=== PATIENT | male | born 1965 | race Caucasian/White ===

== ENCOUNTER 2020-10-05 11:39 | Outpatient (CLI) | payer OTHER, SELFPAY ==
--- NOTE | ~2020-10-05 | XR_ITS ---
EXAMINATION: XR chest 2V DATE: 10/05/2020 12:00 INDICATION: Edema of the lower extremity. TECHNIQUE: Frontal and lateral views of the chest were obtained. COMPARISON: Chest 2 views 01/01/2014 FINDINGS: There is mild scarring at the lung apices. No pleural effusion or pneumothorax. The heart s ize is normal. There is mild chronic anterior wedging of 2 midthoracic vertebral bodies. IMPRESSION: 1. Stable mild scarring at the lung apices. Reviewed, dictated and finalized at location A. PALLETIZER
[2020-10-05 12:12] LABS: Basophils Percent Auto 0.6 % (0.2-1.2); Eosinophils Absolute Auto 0.2 K/mm3 (0-0.3); Eosinophils Percent Auto 2.1 % (0-4.4); Hematocrit 47.4 % (42.0-52.0); Hemoglobin 15.4 g/dL (14.0-18.0); Immature Granulocyte Absolute 0.01 K/mm3 (0.00-0.031); Immature Granulocyte Percent A 0.1 % (0-0.5); Lymphocytes Absolute Auto 1.91 K/mm3 (0.9-3.2); Lymphocytes Percent Auto 27.2 % (18.3-44.2); Mean Corpuscular HGB Conc 32.5 g/dl (32-36); Mean Corpuscular Hemoglobin 30.3 pg (26-34); Mean Corpuscular Volume 93.1 fl (80-100); Mean Platelet Volume 9.4 fl (7.4-10.4); Monocytes Absolute Auto 0.7 K/mm3 (0.1-0.6); Neutrophils Absolute Auto 4.2 K/mm3 (1.3-6.7); Platelet Count Result 261 k/mm3 (150-375); Red Blood Count 5.09 M/mm3 (4.6-6.20)
[2020-10-05 12:24] LABS: Anion Gap 9 mmol/L (8-16); Blood Urea Nitrogen 20 mg/dL (9-20); Calcium 9.3 mg/dL (8.4-10.2); Carbon Dioxide 26 mmol/L (22-30); Chloride 106 mmol/L (98-107); Estimated Glomerular Filt Rate > 60; Glucose 111 mg/dL (75-110); Potassium 3.8 mmol/L (3.4-5.0); Sodium 141 mmol/L (137-145)
[2020-10-05 12:32] LABS: NT Pro B Type Natriuretic Pept 64 PG/ML (5-100)
== END 2020-10-05 11:40 | disposition home or self-care (01) ==
LOC: ANHLAB 11:40
PROVIDERS: PCP Internal Medicine; Visit Provider Nurse Practitioner
DX: R60.0 Localized edema (principal); R91.8 Other nonspecific abnormal finding of lung field
CPT/HCPCS: 36415; 71046; 80048; 83880; 85025

== ENCOUNTER 2022-03-22 13:26 | Outpatient (CLI) | payer OTHER, SELFPAY ==
--- NOTE | ~2022-03-22 | PE_ITS ---
EXAMINATION: PET skull to mid thigh DATE: 03/22/2022 15:02 INDICATION: Abnormal findings on diagnostic imaging of lung. TECHNIQUE: Blood glucose level was 99 mg/dL. 11.705 mCi of 18-fluorodeoxyglucose (18-FDG) was adminis tered i.v. Low dose computed tomography (CT) images were acquired from the base of the brain to the p roximal thighs for attenuation correction and anatomic localization. Automated exposure control was e mployed. Dose-length product (DLP) was 1291 mGy-cm. Positron emission tomography (PET) images were ac quired in the same distribution. COMPARISON: Chest 2 views 10/05/2020 FINDINGS: Head/neck: There is increased activity in the nose, oral cavity, major salivary glands, pharynx, and glottis without abnormal CT correlate, likely physiologic. There are no pathologically enlarged lymph nodes. Chest: There is mild emphysema. The lungs demonstrate mild atelectasis. Calcified right lung nodules are consistent with old granulomatous disease. In the right upper lobe, there is a 2.4 x 1.6 cm nodul e without increased activity. There are tree-in-bud opacities in right middle lobe, consistent with m ild pneumonia. No pleural effusion. Cardiomegaly is noted. There are coronary artery calcifications. No pericardial effusion. Abdomen/pelvis/proximal thighs: The liver, gallbladder, spleen, pancreas, adrenal glands, and kidneys are normal. There are no dilated loops of bowel. There is an umbilical hernia containing fat. There are no pathologically enlarged lymph nodes. There is no free intraperitoneal fluid. There is severe l umbar spondylosis. IMPRESSION: 1. 2.4 x 1.6 cm nodule without increased activity in right lung upper lobe, probably benign. Noncontr ast low-dose chest CT is recommended in 6 months. 2. Mild pneumonia in right middle lobe. 3. Mild emphysema. Reviewed, dictated and finalized at location A. IMPRESSION: 1. 2.4 x 1.6 cm nodule without increased activity in right lung upper lobe, pro bably benign. Noncontrast low-dose chest CT is recommended in 6 months. 2. Mild pneumonia in right middle lobe. 3. Mild emphysema.
[2022-03-22 13:46] LABS: Glucose Point of Care 99 mg/dl (65-105)
== END 2022-03-22 13:27 | disposition home or self-care (01) ==
LOC: ANHIMG 13:31
PROVIDERS: PCP Internal Medicine; Visit Provider Nurse Practitioner
DX: R91.8 Other nonspecific abnormal finding of lung field (principal); J43.9 Emphysema, unspecified; J18.9 Pneumonia, unspecified organism
CPT/HCPCS: 78815; A9552